=== PATIENT | female | born 1965 | race Two or more races ===

== ENCOUNTER 2017-03-07 19:37 | Emergency (ER) | payer OTHER ==
[~2017-03-07] VITALS: Ht 165.1 cm; Wt 66.2 kg
[2017-03-07 20:02] VITALS: BP 130/84
== END 2017-03-07 20:42 | disposition home or self-care (01) ==
LOC: ER 19:43
DX: J40 Bronchitis, not specified as acute or chronic (principal)
CPT/HCPCS: 99283; A4606; Z7610

== ENCOUNTER 2019-01-16 11:54 | Emergency (ER) | payer OTHER ==
[~2019-01-16] VITALS: Ht 170.2 cm; Wt 90.7 kg
[2019-01-16 12:08] VITALS: BP 141/87
--- NOTE | 2019-01-16 12:10 | NUR ---
SEEN AND EXAMINED BY .
--- NOTE | 2019-01-16 12:29 | NUR ---
VELCRO SPLINT APLLIED
--- NOTE | 2019-01-16 12:30 | NUR ---
Patient discharged to home in stable condition. Written and verbal after care instructions given. Patient verbalizes understanding of instruction.
== END 2019-01-16 12:30 | disposition home or self-care (01) ==
LOC: ER 11:54
DX: M77.9 Enthesopathy, unspecified (principal)

== ENCOUNTER 2019-11-01 18:10 | Emergency (ER) | payer OTHER ==
[~2019-11-01] VITALS: Ht 160 cm; Wt 83.9 kg
[2019-11-01 18:29] VITALS: BP 146/65
== END 2019-11-01 19:02 | disposition home or self-care (01) ==
LOC: ER 18:16
DX: M65.331 Trigger finger, right middle finger (principal); L03.011 Cellulitis of right finger; L08.89 Other specified local infections of the skin and subcutaneous tissue